=== PATIENT | female | born 1970 | race African-American/Black ===

== ENCOUNTER 2018-06-02 12:00 | Emergency (ER) | payer OTHER ==
[~2018-06-02] VITALS: Ht 167.6 cm; Wt 99.8 kg
[2018-06-02 12:03] VITALS: BP 159/89
[2018-06-02] MEDS ORDERED: BUTALB-ACETAMI1 EAC1 PO (12:07)
[2018-06-02] MEDS ORDERED: TELMISARTAN-HC1 EAC2 PO (12:07)
--- NOTE | 2018-06-02 12:24 | Emergency Room Report ---
History of Present Illness General Chief Complaint: Headache Source: Patient Present Illness HPI 48-year-old female patient since the ER complaining of migraine for the past 3 days. Patient reports she was diagnosed with migraine "a while ago". Patient reports that she has been taking Fioricet, BC powder, as well without relief of symptoms. Reports headache is not the worst of life, comparable to previous headaches in the past. Reports began behind her left eye and is now on the right side of her head and behind her right eye. 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 Reports she has been taking her medications as instructed. Denies fever, neck pain, chest pain, shortness of breath. Denies vomiting. Denies vision changes, phonophobia. denies injury or trauma. Denies dizziness, syncope. Allergies: Coded Allergies: MORPHINE (Verified Allergy, Unknown, vomiting, 06/02/18) Patient History Past Medical History: see triage record Last Menstrual Period: hysterectomy 2009 Reviewed Nursing Documentation: PMH: Agreed; PSxH: Agreed Nursing Documentation-PMH Past Medical History: No History, Except For Hx Hypertension: Yes Review of Systems All Other Systems: negative except mentioned in HPI Physical Exam Vital Signs Date Time Temp Pulse Resp B/P (MAP) Pulse Ox O2 Delivery O2 Flow Rate FiO2 06/02/18 12:03 98.1 75 18 159/89 99 Room Air Sp02 EP Interpretation: reviewed, normal General Appearance: well appearing, no apparent distress, alert, GCS 15, non- toxic Head: normocephalic, atraumatic Eyes: bilateral eye normal inspection, bilateral eye PERRL ENT: hearing grossly normal, normal pharynx, no angioedema, normal voice, uvula midline, moist mucus membranes Neck: full range of motion, no meningismus, no bony tend Respiratory: lungs clear, normal breath sounds, no rhonchi, no respiratory distress, no accessory muscle use, no wheezing, speaking full sentences Cardiovascular #1: regular rate, rhythm, no edema Gastrointestinal: non tender, soft, no mass, non-distended, no guarding, no rebound Genitourinary: no CVA tenderness Musculoskeletal: back normal, digits/nails normal, gait/station normal, normal range of motion, non-tender Neurologic: alert, oriented x3, responsive, central processing tech III-XII nml as tested, motor strength/tone normal, SLR negative, sensory intact, cerebellar normal, normal gait, speech normal, other - negative Kernig, negative Brudzinski Psychiatric: mood/affect normal Skin: no rash Lymphatic: no adenopathy Medical Decision Making PA Attestation Dr. Moncada is my supervising Physician whom patient management has been discussed with. Diagnostic Impression: Primary Impression: Headache ER Course Pt presents to ED c/o headache. DDX considered but are not limited to migraine, cluster JORDAN, tension JORDAN, meningitis, ICH, meningitis, HTN, influenza, UTI. Negative Kernig, negative Brudzinski, afebrile, nontoxic, low suspicion for meningitis. Cranial nerves intact as tested, no focal deficits, denies worse headache of life, low suspicion for this SAH. VITAL SIGNS are WNL, patient is afebrile ER COURSE provided patient with Reglan, Benadryl, Toradol for headache symptoms. UA negative for infection ER precautions given Patient reports pain symptoms improved in ER DISCHARGE: -Rx provided Excedrin migraine At this time pt is stable for d/c to home. Patient is resting comfortably, in no acute distress, nontoxic appearing, talking and smiling. Will provide with patient care instructions and any necessary prescriptions. Patient to take medication as instructed. Care plan and follow-up instructions provided. Patient questions asked and answered. Patient instructed to follow-up with primary care provider in the next 3 days and discuss further referral with PCP to neurologist. ER precautions given. Patient instructed to return to ER immediately for any new or worsening of symptoms including but not limited to fever, neck stiffness , vision changes, and neurological symptoms. - Please note that this Emergency Department Report was dictated using [employer] evaluated nurse aide technology software, occasionally this can lead to erroneous entry secondary to interpretation by the dictation equipment. Labs Test 06/02/18 12:30 Urine Color Pale yellow Urine Appearance Clear Urine pH 8 (4.5-8.0) Urine Specific [place] 1.010 (1.005-1.035) Urine Protein Negative (NEGATIVE) Urine Glucose (UA) Negative (NEGATIVE) Urine Ketones Negative (NEGATIVE) Urine Blood Negative (NEGATIVE) Urine Nitrite Negative (NEGATIVE) Urine Bilirubin Negative (NEGATIVE) Urine Urobilinogen Normal MG/DL (0.0-1.0) Urine Leukocyte Esterase 1+ (NEGATIVE) Urine RBC 0-2 /HPF (0 - 2) Urine WBC 2-4 /HPF (0 - 2) Urine Squamous Epithelial Cells Occasional /LPF Urine Bacteria Occasional /HPF (NONE) Last Vital Signs Date Time Temp Pulse Resp B/P (MAP) Pulse Ox O2 Delivery O2 Flow Rate FiO2 06/02/18 12:03 98.1 63 18 159/89 99 Room Air Status: improved Disposition: HOME, SELF-CARE Condition: Stable Scripts Aspirin/Acetaminophen/Caffeine (EXCEDRIN MIGRAINE CAPLET) 1 Each Tablet 1 EACH PO TID, #30 TAB Prov: Keny Herbert 06/02/18 Referrals: [facility]ERR[facility] (PCP) Patient Instructions: General Headache Without Cause, Migraine Headache Additional Instructions: Followup with primary care provider in 3 -5 days. Followup with neurologist. Take medications as directed. Patient questions asked and answered. ER precautions given, patient instructed to return to ER immediately for any new or worsening of symptoms. Keny Herbert Jun 02, 2018 12:23
[2018-06-02] MEDS ORDERED: Ketorolac 30mg Inj IM ONE (12:30)
[2018-06-02] MEDS ORDERED: Tetracaine 0.5% Opth 4ml Soln LEFT EYE ONE (12:30)
[2018-06-02 13:04] LABS: APPEARANCE,URINE CLEAR; BILIRUBIN, URINE NEGATIVE (NEGATIVE); COLOR,URINE PALE YELLOW; GLUCOSE, URINE (UA) NEGATIVE (NEGATIVE); KETONES,URINE NEGATIVE (NEGATIVE); LEUKOCYTE ESTERASE ,URINE 1+ (NEGATIVE); NITRITE,URINE NEGATIVE (NEGATIVE); PH,URINE 8 (4.5-8.0); PROTEIN,URINE NEGATIVE (NEGATIVE); UROBILINOGEN,URINE NORMAL MG/DL (0.0-1.0)
[2018-06-02] MEDS ORDERED: EXCEDRIN MIGRA1 EAC1 PO (13:30)
[2018-06-02 13:44] VITALS: BP 148/76
== END 2018-06-02 13:45 | disposition home or self-care (01) ==
LOC: EMR 12:17
DX: G43.909 Migraine, unspecified, not intractable, without status migrainosus (principal); I10 Essential (primary) hypertension; H40.9 Unspecified glaucoma; Z90.710 Acquired absence of both cervix and uterus; Z88.5 Allergy status to narcotic agent
CPT/HCPCS: 81003; 96372; 99283; J1885